=== PATIENT | female | born 1995 | race Caucasian/White ===

== ENCOUNTER 2024-11-13 15:34 | Outpatient (CLI) | payer OTHER, SELFPAY ==
--- NOTE | ~2024-11-13 | XR_ITS ---
XR TMJ BI 11/13/2024 16:11 Indication: Jaw pain Procedure: 2 views each of the temporomandibular joints Comparison: No prior studies for comparison. Findings: No acute fracture, subluxation or dislocation. Surrounding osseous structures and soft tiss ues are unremarkable. Impression: 1: No acute bone or joint abnormality. Reviewed, dictated and finalized at location A. Impression: 1: No acute bone or joint abnormality.
== END 2024-11-13 15:35 | disposition home or self-care (01) ==
DX: R68.84 Jaw pain (principal)
CPT/HCPCS: 70330